=== PATIENT | male | born 1965 | race Hispanic/Latino ===

== ENCOUNTER 2021-12-08 11:00 | Emergency (ER) | payer OTHER ==
[~2021-12-08] VITALS: Ht 170.2 cm; Wt 93.0 kg
[2021-12-08 12:41] VITALS: BP 134/73
[2021-12-08] MEDS ORDERED: IBUP-2070 PO (12:52)
[2021-12-08] MEDS ORDERED: KETOROLAC 30MG VIAL (30MG/ML) IM ONE (13:00)
== END 2021-12-08 14:24 | disposition home or self-care (01) ==
LOC: EDH 11:00
DX: M54.50 Low back pain, unspecified (principal); M25.512 Pain in left shoulder; V49.49XA Driver injured in collision with other motor vehicles in traffic accident, initial encounter; Y93.89 Activity, other specified; Y92.413 State road as the place of occurrence of the external cause; Y99.8 Other external cause status
CPT/HCPCS: 72125; 72131; 99284; J1885